=== PATIENT | female | born 1975 | race Caucasian/White ===

== ENCOUNTER 2016-09-11 17:25 | Emergency (ER) | payer OTHER, SELFPAY ==
[2016-09-11 18:36] LABS: BASOPHIL 0.6 % (0-2); EOSINOPHIL 2.9 % (0-5); HCT 44.4 % (37.0-47.0); HGB 15.1 g/dl (12.5-16.0); LYMPHOCYTE 31.7 % (15-48); MCH 32.3 pg (25.0-31.0); MCV 94.9 fL (78.0-100.0); MONOCYTE 5.5 % (0-12); MPV 8.5 fL (6.0-9.5); NEUTROPHIL 59.3 % (41-80); PLT 487 K/uL (150-400); RBC 4.68 M/uL (4.20-5.40); RDW 13.1 % (11.5-14.0); WBC 11.1 K/uL (4.0-10.5)
[2016-09-11 18:45] LABS: ALBUMIN 4.2 g/dL (3.5-5.0); BILIRUBIN - TOTAL 0.2 mg/dL (0.1-1.0); CREATININE 0.8 mg/dL (0.5-1.0); GLOBULIN (CALCULATION) 2.9 g/dL (2.2-4.2); POTASSIUM 4.1 mmol/L (3.5-5.1); TOTAL PROTEIN 7.1 g/dL (6.4-8.3)
[2016-09-11 18:46] LABS: CKMB 1.27 ng/mL (0.97-4.94); TROPONIN T < 0.010 ng/mL
== END 2016-09-11 20:15 | disposition home or self-care (01) ==
LOC: FER 17:25
PROVIDERS: Emergency Medicine
DX: K21.9 Gastro-esophageal reflux disease without esophagitis (principal); F41.9 Anxiety disorder, unspecified; J44.9 Chronic obstructive pulmonary disease, unspecified; F17.210 Nicotine dependence, cigarettes, uncomplicated; Z88.0 Allergy status to penicillin; Z88.5 Allergy status to narcotic agent
CPT/HCPCS: 36415; 71020; 80053; 82553; 84484; 85025; 87339; 93005

== ENCOUNTER 2020-07-10 11:02 | Emergency (ER) | payer OTHER ==
[~2020-07-10 11:02] MED LIST: BACTRIM DS TAB1 EACH PO; KEFLEX500 MG PO
[2020-07-10 13:04] LABS: BASOPHIL 0.6 % (0-2); EOSINOPHIL 0.7 % (0-5); HGB 16.1 g/dl (12.5-16.0); LYMPHOCYTE 14.7 % (15-48); MCH 31.3 pg (25.0-31.0); MCHC 32.9 g/dL (32.0-36.0); MCV 95.3 fL (78.0-100.0); MONOCYTE 4.2 % (0-12); MPV 8.4 fL (6.0-9.5); NEUTROPHIL 79.4 % (41-80); NRBC 0; PLT 427 K/uL (150-400); RBC 5.14 M/uL (4.20-5.40); RDW 12.5 % (11.5-14.0)
[2020-07-10 13:26] LABS: INR 0.95 (0.9-1.2); PTT 30.9 SECONDS (22.2-34.7)
[2020-07-10 13:35] LABS: BILIRUBIN NEGATIVE (NEGATIVE); BLOOD TRACE-INTACT Ery/uL (NEGATIVE); CLARITY CLEAR (CLEAR); COLOR YELLOW (YELLOW); GLUCOSE (U) NORMAL (NORMAL); LEUKOCYTES NEGATIVE Leu/uL (NEGATIVE); NITRITE NEGATIVE (NEGATIVE); PROTEIN NEGATIVE (NEGATIVE); SPECIFIC GRAVITY 1.015 (1.001-1.030); UROBILINOGEN 0.2 mg/dL (0.2-1.0)
[2020-07-10 13:44] LABS: ALBUMIN 4.1 g/dL (3.4-5.0); BILIRUBIN - TOTAL 0.2 mg/dL (0.2-1.0); BUN/CREAT RATIO (CALC) 19.7 RATIO; CREATININE 0.71 mg/dL (0.51-0.95); POTASSIUM 4.1 mmol/L (3.5-5.1); TOTAL PROTEIN 8.1 g/dL (6.4-8.2)
[2020-07-10 14:12] LABS: URINARY RBC RARE
[2020-07-10] MEDS ORDERED: ZOFRAN4 M1 PO (14:20)
[2020-07-10 14:39] LABS: LACTIC ACID 0.6 mmol/L (0.4-1.9)
== END 2020-07-10 14:30 | disposition home or self-care (01) ==
LOC: FER 11:02
PROVIDERS: Emergency Medicine; Nurse Practitioner Family
DX: R11.2 Nausea with vomiting, unspecified (principal); R19.7 Diarrhea, unspecified; R42 Dizziness and giddiness; R00.2 Palpitations; J44.9 Chronic obstructive pulmonary disease, unspecified; F17.210 Nicotine dependence, cigarettes, uncomplicated; Z88.0 Allergy status to penicillin
CPT/HCPCS: 36415; 71045; 80053; 81001; 83605; 84484; 85025; 85610; 85730; 93005